=== PATIENT | female | born 1975 | race Asian ===

== ENCOUNTER 2018-10-04 06:24 | Inpatient (IN) | payer OTHER ==
[~2018-10-04] VITALS: Ht 157.5 cm; Wt 79.0 kg
[2018-10-04 07:16] LABS: BASOPHILS % (AUTO) 0 % (0-1); EOSINOPHILS % (AUTO) 0 % (0-6); HEMATOCRIT 33.5 % (35.0-45.0); HEMOGLOBIN 11.2 g/dl (12.0-16.0); LYMPHOCYTES # (AUTO) 0.3 X10'3 (1.1-4.8); LYMPHOCYTES % (AUTO) 4.5 % (21-51); MEAN CORPUSCULAR HEMOGLOBIN 29.2 PG (27.0-31.0); MEAN CORPUSCULAR HGB CONC 33.5 % (33.0-36.5); MEAN CORPUSCULAR VOLUME 87.2 FL (78-98); MEAN PLATELET VOLUME 8.7 FL (7.4-10.4); MONOCYTES # (AUTO) 0.4 X10'3 (0-0.9); MONOCYTES % (AUTO) 5.8 % (2-12); NEUTROPHILS # (AUTO) 6.5 X10'3 (1.8-7.7); NEUTROPHILS % (AUTO) 89.7 % (42-75); PLATELET COUNT 162 X10'3 (140-440); RED BLOOD COUNT 3.84 X10'6 (4.20-5.60); RED CELL DISTRIBUTION WIDTH 13.6 % (11.5-14.5); WHITE BLOOD COUNT 7.3 X10'3 (4.5-11.0)
[2018-10-04 07:31] LABS: ALANINE AMINOTRANSFERASE 29 U/L (12-78); ALBUMIN 2.3 G/DL (3.4-5.0); ALBUMIN/GLOBULIN RATIO 0.5 (1.1-1.5); ALKALINE PHOSPHATASE 107 IU/L (46-116); ANION GAP 13 (8-16); ASPARTATE AMINO TRANSFERASE 21 U/L (10-37); BILIRUBIN,TOTAL 1.1 MG/DL (0.1-1.0); BLOOD UREA NITROGEN 21 MG/DL (7-18); BUN/CREATININE RATIO 10.8 (6.6-38.0); CALCIUM 8.7 MG/DL (8.5-10.1); CHLORIDE 101 MMOL/L (99-107); CREATININE 1.95 MG/DL (0.40-0.90); GLUCOSE 166 MG/DL (70-104); LIPASE 64 U/L (73-393); SODIUM 136 MMOL/L (135-145); TOTAL PROTEIN 6.8 G/DL (6.4-8.2); eGFR 28 ML/MIN
[2018-10-04 07:33] LABS: POTASSIUM 2.8 MMOL/L (3.5-5.1)
[2018-10-04 08:31] LABS: URINE HCG NEGATIVE (NEG)
[2018-10-04 08:34] LABS: CLARITY,URINE CLOUDY (Clear); COLOR,URINE YELLOW (Yellow); GLUCOSE, URINE NEGATIVE (Neg); KETONES,URINE NEGATIVE (Neg); LEUKOCYTE ESTERASE ,URINE LARGE (Neg); NITRITES, URINE POSITIVE (Neg); OCCULT BLOOD,URINE LARGE (Neg); PROTEIN,URINE 100 mg/dl (Neg)
[2018-10-04] MEDS ORDERED: famotidine/PF 10 mg/ml inj IV ONE (08:35)
[2018-10-04] MEDS ORDERED: normal saline 1000ML IV soln IVB ONE (08:35)
[2018-10-04] MEDS ORDERED: morphine 4 MG/ML inj SYRINge IV ONE (08:35)
[2018-10-04] MEDS ORDERED: ondansetron/PF 4mg/2ml inj IV ONE (08:35)
[2018-10-04 08:37] LABS: UA COLLECTION TYPE CLN CATCH MIDSTREAM
[2018-10-04 08:43] LABS: SQUAMOUS EPITHELIAL CELL,UR MODERATE /LPF (FEW)
[2018-10-04 08:44] LABS: BACTERIA,URINE 2+ /HPF (Neg); WBC,URINE TNTC /HPF (0-4)
[2018-10-04 08:45] LABS: RBC,URINE 20-50 /HPF (0-2)
[2018-10-04] MEDS ORDERED: CefTRIAXone/D5W-Rocephin 1gm 50 ML IV ONE (09:00)
[2018-10-04] MEDS ORDERED: potassium 10mEq/100ml NS w/LIDOcaine (10mg/bag) IV ONE (09:00)
[2018-10-04] MEDS ORDERED: mag hydrox/Alum hydrox/simeth 30ml oral suspension PO PRN (09:20)
[2018-10-04] MEDS ORDERED: magnesium Cl slow-release 64mg tablet PO PRN (09:20)
[2018-10-04] MEDS ORDERED: morphine 2 MG/ML inj. syringe IV PRN (09:20)
[2018-10-04] MEDS ORDERED: potassium Cl 40MEQ/NS 500ml 500 ML IV PRN ×2 (09:20)
[2018-10-04] MEDS ORDERED: potassium Cl 20 mEq SR tablet PO PRN (09:20)
[2018-10-04] MEDS ORDERED: ondansetron/PF 4mg/2ml inj IV PRN (09:20)
[2018-10-04] MEDS ORDERED: acetaminophen 325mg tablet PO PRN ×2 (09:20)
[2018-10-04] MEDS ORDERED: magnesium 4gm in 100ml NS 100 ML IV PRN (09:20)
[2018-10-04] MEDS ORDERED: magnesium 1gm/100ml D5W IVPB 100 ML IV PRN (09:20)
[2018-10-04] MEDS ORDERED: HYDROcodone/acetaminophen 5mg/325mg tablet PO PRN (09:20)
[2018-10-04 11:22] VITALS: BP 114/64
[2018-10-04] MEDS: normal saline 1000ml 1,000 ML IV SCH ×3 (11:55→22:49)
[2018-10-04] MEDS: HYDROcodone/acetaminophen 10/325mg tab PO PRN ×2 (11:56→20:42)
[2018-10-04] MEDS: potassium Cl 20 mEq SR tablet PO PRN ×3 (12:25→20:43)
[2018-10-04] MEDS ORDERED: NO HOME MEDS (17:34)
[2018-10-04 20:00] VITALS: BP 100/72
[2018-10-04] MEDS: heparin, porcine 5000 units/ml vial SQ SCH (20:43)
[2018-10-04] MEDS ORDERED: temazepam 15mg capsule PO PRN (21:00)
[2018-10-05] VITALS: BP 106/68
[2018-10-05] MEDS: normal saline 1000ml 1,000 ML IV SCH ×3 (04:12→18:52)
[2018-10-05] MEDS: HYDROcodone/acetaminophen 10/325mg tab PO PRN ×3 (04:12→19:27)
[2018-10-05] MEDS: morphine 2 MG/ML inj. syringe IV PRN ×2 (04:17→15:21)
[2018-10-05 05:57] LABS: ALBUMIN 1.9 G/DL (3.4-5.0); ANION GAP 10 (8-16); BLOOD UREA NITROGEN 21 MG/DL (7-18); BUN/CREATININE RATIO 13.5 (6.6-38.0); CALCIUM 7.7 MG/DL (8.5-10.1); CHLORIDE 109 MMOL/L (99-107); CREATININE 1.55 MG/DL (0.40-0.90); GLUCOSE 108 MG/DL (70-104); MAGNESIUM 1.7 MG/DL (1.5-2.4); POTASSIUM 4.5 MMOL/L (3.5-5.1); SODIUM 138 MMOL/L (135-145); TOTAL CARBON DIOXIDE 19.3 MMOL/L (24-32); eGFR 36 ML/MIN
[2018-10-05] MEDS: CefTRIAXone/D5W-Rocephin 1gm 50 ML IV SCH (07:26)
[2018-10-05] MEDS: K and/or MAG REPLACEMENT MC SCH (07:31)
[2018-10-05 07:37] VITALS: BP 109/65
[2018-10-05 08:20] LABS: BASOPHILS % (AUTO) 0.1 % (0-1); EOSINOPHILS % (AUTO) 0.3 % (0-6); HEMATOCRIT 28.9 % (35.0-45.0); HEMOGLOBIN 9.6 g/dl (12.0-16.0); LYMPHOCYTES # (AUTO) 0.5 X10'3 (1.1-4.8); LYMPHOCYTES % (AUTO) 9.6 % (21-51); MEAN CORPUSCULAR HEMOGLOBIN 29.3 PG (27.0-31.0); MEAN CORPUSCULAR HGB CONC 33.3 % (33.0-36.5); MEAN CORPUSCULAR VOLUME 87.8 FL (78-98); MEAN PLATELET VOLUME 9.4 FL (7.4-10.4); MONOCYTES # (AUTO) 0.4 X10'3 (0-0.9); MONOCYTES % (AUTO) 7.7 % (2-12); NEUTROPHILS # (AUTO) 4.6 X10'3 (1.8-7.7); NEUTROPHILS % (AUTO) 82.3 % (42-75); PLATELET COUNT 116 X10'3 (140-440); RED BLOOD COUNT 3.29 X10'6 (4.20-5.60); RED CELL DISTRIBUTION WIDTH 14.2 % (11.5-14.5); WHITE BLOOD COUNT 5.6 X10'3 (4.5-11.0)
[2018-10-05] MEDS: heparin, porcine 5000 units/ml vial SQ SCH ×2 (08:22→19:27)
[2018-10-05 11:43] VITALS: BP 133/95
[2018-10-05] MEDS: lactobacillus rhamnosus 10,000 MMU CELLS/CAPSULE PO SCH (19:27)
[2018-10-05] MEDS: magnesium hydroxide 30ml (MOM) UD suspension PO PRN (19:27)
[2018-10-05 20:00] VITALS: BP 130/83
[2018-10-06 00:03] VITALS: BP 123/80
[2018-10-06] MEDS: HYDROcodone/acetaminophen 10/325mg tab PO PRN ×3 (02:03→19:36)
[2018-10-06] MEDS: normal saline 1000ml 1,000 ML IV SCH ×3 (02:05→14:36)
[2018-10-06] MEDS: morphine 2 MG/ML inj. syringe IV PRN ×3 (02:08→23:33)
[2018-10-06 05:56] LABS: BASOPHILS % (AUTO) 0.3 % (0-1); EOSINOPHILS # (AUTO) 0.1 X10'3 (0-0.9); EOSINOPHILS % (AUTO) 2.1 % (0-6); HEMATOCRIT 27.5 % (35.0-45.0); HEMOGLOBIN 9.2 g/dl (12.0-16.0); LYMPHOCYTES # (AUTO) 0.8 X10'3 (1.1-4.8); LYMPHOCYTES % (AUTO) 14.3 % (21-51); MEAN CORPUSCULAR HEMOGLOBIN 29.3 PG (27.0-31.0); MEAN CORPUSCULAR HGB CONC 33.5 % (33.0-36.5); MEAN CORPUSCULAR VOLUME 87.6 FL (78-98); MEAN PLATELET VOLUME 8.9 FL (7.4-10.4); MONOCYTES # (AUTO) 0.6 X10'3 (0-0.9); MONOCYTES % (AUTO) 10.7 % (2-12); NEUTROPHILS # (AUTO) 3.8 X10'3 (1.8-7.7); NEUTROPHILS % (AUTO) 72.6 % (42-75); PLATELET COUNT 146 X10'3 (140-440); RED BLOOD COUNT 3.15 X10'6 (4.20-5.60); RED CELL DISTRIBUTION WIDTH 14.5 % (11.5-14.5); WHITE BLOOD COUNT 5.3 X10'3 (4.5-11.0)
[2018-10-06 06:08] LABS: ALBUMIN 1.9 G/DL (3.4-5.0); ANION GAP 10 (8-16); BLOOD UREA NITROGEN 12 MG/DL (7-18); BUN/CREATININE RATIO 9.6 (6.6-38.0); CALCIUM 8.4 MG/DL (8.5-10.1); CHLORIDE 107 MMOL/L (99-107); CREATININE 1.25 MG/DL (0.40-0.90); GLUCOSE 124 MG/DL (70-104); MAGNESIUM 1.8 MG/DL (1.5-2.4); POTASSIUM 3.8 MMOL/L (3.5-5.1); SODIUM 138 MMOL/L (135-145); TOTAL CARBON DIOXIDE 21.5 MMOL/L (24-32); eGFR 46 ML/MIN
[2018-10-06 07:00] VITALS: BP 120/86
[2018-10-06] MEDS: lactobacillus rhamnosus 10,000 MMU CELLS/CAPSULE PO SCH ×2 (07:56→19:27)
[2018-10-06] MEDS: heparin, porcine 5000 units/ml vial SQ SCH ×2 (07:57→19:26)
[2018-10-06 08:00] VITALS: BP 124/86
[2018-10-06] MEDS: K and/or MAG REPLACEMENT MC SCH (08:00)
[2018-10-06] MEDS: CefTRIAXone/D5W-Rocephin 1gm 50 ML IV SCH (08:01)
[2018-10-06 11:00] VITALS: BP 128/86
[2018-10-06] MEDS: magnesium hydroxide 30ml (MOM) UD suspension PO PRN (11:51)
[2018-10-06 14:29] LABS: % IRON SATURATION 17 % (11-46); IRON 27 UG/DL (49-151); TOTAL IRON BINDING CAPACITY 162 UG/DL (259-388)
[2018-10-06 19:00] VITALS: BP 146/93
[2018-10-06] MEDS ORDERED: famotidine 20mg tablet PO SCH (21:00)
[2018-10-06 23:53] VITALS: BP 132/79
[2018-10-07 05:04] LABS: BASOPHILS % (AUTO) 0.3 % (0-1); EOSINOPHILS # (AUTO) 0.1 X10'3 (0-0.9); EOSINOPHILS % (AUTO) 2.4 % (0-6); HEMATOCRIT 26.8 % (35.0-45.0); LYMPHOCYTES % (AUTO) 18.1 % (21-51); MEAN CORPUSCULAR HEMOGLOBIN 29.2 PG (27.0-31.0); MEAN CORPUSCULAR HGB CONC 33.6 % (33.0-36.5); MEAN CORPUSCULAR VOLUME 86.9 FL (78-98); MEAN PLATELET VOLUME 8.8 FL (7.4-10.4); MONOCYTES # (AUTO) 0.6 X10'3 (0-0.9); MONOCYTES % (AUTO) 11.5 % (2-12); NEUTROPHILS # (AUTO) 3.7 X10'3 (1.8-7.7); NEUTROPHILS % (AUTO) 67.7 % (42-75); PLATELET COUNT 149 X10'3 (140-440); RED BLOOD COUNT 3.09 X10'6 (4.20-5.60); RED CELL DISTRIBUTION WIDTH 14.2 % (11.5-14.5); WHITE BLOOD COUNT 5.5 X10'3 (4.5-11.0)
[2018-10-07 05:17] LABS: ALBUMIN 1.9 G/DL (3.4-5.0); ANION GAP 10 (8-16); BLOOD UREA NITROGEN 9 MG/DL (7-18); BUN/CREATININE RATIO 7.8 (6.6-38.0); CALCIUM 8.6 MG/DL (8.5-10.1); CHLORIDE 106 MMOL/L (99-107); CREATININE 1.15 MG/DL (0.40-0.90); GLUCOSE 109 MG/DL (70-104); MAGNESIUM 1.7 MG/DL (1.5-2.4); POTASSIUM 3.7 MMOL/L (3.5-5.1); SODIUM 139 MMOL/L (135-145); TOTAL CARBON DIOXIDE 23.2 MMOL/L (24-32); eGFR 51 ML/MIN
[2018-10-07 06:15] VITALS: BP 127/94
[2018-10-07] MEDS: lactobacillus rhamnosus 10,000 MMU CELLS/CAPSULE PO SCH (08:35)
[2018-10-07] MEDS: heparin, porcine 5000 units/ml vial SQ SCH (08:37)
[2018-10-07] MEDS: CefTRIAXone/D5W-Rocephin 1gm 50 ML IV SCH (08:38)
[2018-10-07] MEDS: K and/or MAG REPLACEMENT MC SCH (08:51)
[2018-10-07] MEDS ORDERED: LEVO500T2 PO (09:30)
[2018-10-07] MEDS ORDERED: HYDR-4383 PO (09:30)
[2018-10-07 10:56] VITALS: BP 133/87
== END 2018-10-07 11:41 | disposition home or self-care (01) | DRG 871 ==
LOC: ER 06:25 → ED HOLD 09:24 → SUR 3N 11:19
PROVIDERS: ADMIT Hospitalist; ATTEND Internal Medicine
DX: A41.51 Sepsis due to Escherichia coli [E. coli] (principal); E43 Unspecified severe protein-calorie malnutrition; N10 Acute pyelonephritis; N17.9 Acute kidney failure, unspecified; R31.9 Hematuria, unspecified; B96.20 Unspecified Escherichia coli [E. coli] as the cause of diseases classified elsewhere; D64.9 Anemia, unspecified; N20.0 Calculus of kidney; E87.6 Hypokalemia; N18.9 Chronic kidney disease, unspecified; Z87.442 Personal history of urinary calculi; Z23 Encounter for immunization; Z90.49 Acquired absence of other specified parts of digestive tract; Z68.31 Body mass index [BMI] 31.0-31.9, adult
CPT/HCPCS: 36415; 74176; 80048; 80053; 81001; 81025; 83540; 83550; 83605; 83690; 83735; 85025; 87040; 87070; 87077; 87088; 87186; G0378; J0696; J1644; J2270; J2405; J3480; J3490; J7030; Q2037